=== PATIENT | female | born 1995 | race Caucasian/White ===

== ENCOUNTER 2016-12-05 13:45 | Emergency (ER) | payer OTHER ==
[~2016-12-05] VITALS: Wt 77.0 kg
--- NOTE | 2016-12-05 15:17 | EN ---
Date/Time of Note Date/Time of Note DATE: 12/05/16 TIME: 15:15 ER Progress Note Patient seen and examined in E. Patient had hemoptysis, sore throat, ear pain since last night. Hemodynamically stable. Examination within normal limits in RME but patient would like an xray. will be sent to ED2 for further evaluation. EDWIN SHARMA PA-C Dec 05, 2016 15:17
--- NOTE | 2016-12-05 17:20 | RADRPT ---
PROCEDURE: XR Chest. CLINICAL INDICATION: Cough. TECHNIQUE: Single frontal view of the chest was obtained COMPARISON: No. FINDINGS: The soft tissues are normal. The bony elements are normal. The heart, cardiomediastinal silhouette , pulmonary vasculature and hilar structures are normal. There is a left-sided aorta. The lungs are clear. The costophrenic angles are normal. IMPRESSION: 1. Normal chest x-ray. No acute infiltrate is identified. RPTAT:AAJJ Physician Faraz Date Time Electronically viewed and signed by Jairon Rome Physician on 12/05/2016 17:19 [email or web address]/
[2016-12-05] MEDS ORDERED: AZIT250T94 PO (17:52)
[2016-12-05] MEDS ORDERED: CETI10CA PO (17:52)
[2016-12-05] MEDS ORDERED: ALBU8.5H3 INH (17:52)
[2016-12-05] MEDS ORDERED: BENZ100C70 PO (17:53)
--- NOTE | 2016-12-05 18:01 | ERD ---
ER Documentation Chief Complaint Date/Time DATE: 12/05/16 TIME: 17:57 Chief Complaint COUGH FOR THE PAST FEW MONTHS. EAR PAIN AND SORE THROAT WITH HEADACHE HPI Patient is a 21-year-old female who presents to the ED with congestion, cough, runny nose and 2 episodes of hemoptysis. Denies night sweats. Denies chest pain, shortness of breath or difficulty breathing. Denies leg pain or swelling. Denies headache, dizziness, neck pain or stiffness. Denies abdominal pain, nausea, vomiting or diarrhea. Patient states that in September she had similar symptoms and was given Keflex, an inhaler and prednisone and states that the symptoms got better. However she states that she has similar symptoms now. She also complains of right ear pain. She also states that her mom has similar symptoms at home. She is up-to-date with her vaccinations. Denies recent surgeries, use of OCPs, recent travel. No other complaints ROS All systems reviewed and are negative except as per history of present illness. Medications Home Meds Active Scripts Benzonatate* (Tessalon Perle*) 100 Mg Capsule, 100 MG PO Q8H Y for COUGH for 10 Days, CAP Prov:EDWIN SHARMA PA-C 12/05/16 Cetirizine Hcl* (Zyrtec*) 10 Mg Capsule, 10 MG PO DAILY, #30 TAB.CHEW Prov:EDWIN SHARMA PA-C 12/05/16 Albuterol Sulfate* (Proair HFA*) 8.5 Gm Hfa.aer.ad, 2 PUFF INH Q4, #1 INHALER Prov:EDWIN SHARMA PA-C 12/05/16 Azithromycin* (Zithromax*) 250 Mg Tablet, 250 MG PO .ZPACK DIRECTED, #6 TAB TAKE 500 MG (2 TABS) THE FIRST DAY THEN 250 MG (1 TAB) DAYS 2-5 Prov:EDWIN SHARMA PA-C 12/05/16 Allergies Allergies: Coded Allergies: No Known Allergy (Unverified , 12/05/16) PMhx/Soc Medical and Surgical Hx: pt denies Medical Hx, pt denies Surgical Hx History of Surgery: No Anesthesia Reaction: No Hx Neurological Disorder: No Hx Respiratory Disorders: No Hx Cardiac Disorders: No Hx Psychiatric Problems: No Hx Miscellaneous Medical Probl: No Hx Alcohol Use: Yes (socially.) Hx Substance Use: No Hx Tobacco Use: No Smoking Status: Never smoker Physical Exam Vitals Vital Signs Date Time Temp Pulse Resp B/P Pulse Ox O2 Delivery O2 Flow Rate FiO2 12/05/16 13:54 98.5 76 20 140/78 97 Physical Exam GENERAL: Well-developed, well-nourished female. Appears in no acute distress. HEAD: Normocephalic, atraumatic. EYES: Pupils are equally reactive bilaterally. EOMs grossly intact. No conjunctival erythema. ENT: Moist mucous membranes. No uvula deviation. No kissing tonsils. No exudates. TMs clear with no erythema or drainage mastoid tenderness. No bleeding seen in throat. No shift and uvula NECK: Supple. No lymphadenopathy or thyromegaly. No meningismus. negative kernig. negative brudinski. LUNG: Clear to auscultation bilaterally. No rhonchi, wheezing, rales or coarse breath sounds. HEART: Regular rate and rhythm. No murmurs, rubs or gallops. NEUROLOGIC: Alert and oriented. Moving all four extremities. 5/5 strength in all extremities. Normal speech. Steady gait. SKIN: Normal color. Warm and dry. No rashes or lesions. Capillary refill < 2 seconds Procedures/MDM ER COURSE: I kept the patient and/or family informed of laboratory and diagnostic imaging results throughout the emergency room course. Imaging studies: [place] [id number] Radiology Main Line: [phone] DIAGNOSTIC IMAGING REPORT Patient: SARAH BARRERA : 1995 Age: 21 Sex: F MR #: [id number] DOS: 12/05/16 1647 Ordering MD: EDWIN SHARMA PA-C Location: [facility] Room/Bed: PROCEDURE: XR Chest. CLINICAL INDICATION: Cough. TECHNIQUE: Single frontal view of the chest was obtained COMPARISON: No. FINDINGS: The soft tissues are normal. The bony elements are normal. The heart, cardiomediastinal silhouette, pulmonary vasculature and hilar structures are normal. There is a left-sided aorta. The lungs are clear. The costophrenic angles are normal. IMPRESSION: 1. Normal chest x-ray. No acute infiltrate is identified. RPTAT:AAJJ Jairon Rome Physician Date Time Electronically viewed and signed by Jairon Rome Physician on 12/05/2016 17:19 JM/ CC: EDWIN SHARMA PA-C MEDICAL DECISION MAKING: This is a 21-year-old female who presents with cough, sore throat and runny nose. Vital signs were reviewed. Patient is afebrile. Patient is not hypoxic. Patient is nontoxic or ill-appearing. Temperature 98.5, O2 sat 97. Patient likely has URI, viral versus bacterial etiology. Her chest x-ray is read by radiologist is unremarkable. Low suspicion for pneumonia, PE, pneumothorax, ACS , epiglottitis, obstruction, TB, pertussis, meningitis, sepsis. DISCHARGE: At this time, patient is stable for discharge and outpatient management with no new complaints during the ER course. Patient was sent home with Tessalon Perles , Zyrtec, albuterol and azithromycin. Patient will be discharged home with instructions to recheck for new or worsening symptoms such as fever, nausea, weakness, LOC and to follow up with primary care in the next 1-2 days. Patient was advised to return to the ER for any new or worsening symptoms. Plan was discussed and patient and/or family understands and agrees. Home instructions were given. Departure Diagnosis: Primary Impression: URI, acute Condition: Stable Patient Instructions: Uri, Viral, No Abx (Adult) Additional Instructions: Call your primary care doctor TOMORROW for an appointment during the next 1-2 days.See the doctor sooner or return here if your condition worsens before your appointment time. EDWIN SHARMA PA-C Dec 05, 2016 18:01
[2016-12-05 18:03] VITALS: BP 120/70; PULSE 69; RESP 16
== END 2016-12-05 18:04 | disposition home or self-care (01) ==
LOC: FTE 13:45
DX: J06.9 Acute upper respiratory infection, unspecified (principal)
CPT/HCPCS: 71010; Z7502

== ENCOUNTER 2017-03-04 06:25 | Emergency (ER) | payer OTHER ==
[~2017-03-04] VITALS: Wt 75.0 kg
[~2017-03-04 06:25] MED LIST: ALBU8.5H3 INH; AZIT250T94 PO; BENZ100C70 PO; CETI10CA PO
--- NOTE | 2017-03-04 06:45 | ERD ---
ER Documentation Chief Complaint Date/Time DATE: 03/04/17 TIME: 06:42 Chief Complaint cough sore throat for the past few days. and ear pain HPI This is a 22-year-old female presenting to the emergency department for cough, sore throat 3 days. Cough is dry nonproductive. Patient rates sore throat 7-8 /10 and worsening pain with swallowing. No fevers or chills. No shortness of breath or difficulty breathing. No wheezing. Patient has tried DayQuil and NyQuil at home with some relief of symptoms. Patient states cough continues throughout the day. ROS All systems reviewed and are negative except as per history of present illness. Medications Home Meds Active Scripts Benzonatate* (Tessalon Perle*) 100 Mg Capsule, 100 MG PO Q8H Y for COUGH for 10 Days, CAP Prov:EDWIN SHARMA PA-C 12/05/16 Cetirizine Hcl* (Zyrtec*) 10 Mg Capsule, 10 MG PO DAILY, #30 TAB.CHEW Prov:EDWIN SHARMA PA-C 12/05/16 Albuterol Sulfate* (Proair HFA*) 8.5 Gm Hfa.aer.ad, 2 PUFF INH Q4, #1 INHALER Prov:EDWIN SHARMA PA-C 12/05/16 Azithromycin* (Zithromax*) 250 Mg Tablet, 250 MG PO .ZPACK DIRECTED, #6 TAB TAKE 500 MG (2 TABS) THE FIRST DAY THEN 250 MG (1 TAB) DAYS 2-5 Prov:EDWIN SHARMA PA-C 12/05/16 Allergies Allergies: Coded Allergies: No Known Allergy (Unverified , 12/05/16) PMhx/Soc History of Surgery: No Anesthesia Reaction: No Hx Neurological Disorder: No Hx Respiratory Disorders: No Hx Cardiac Disorders: No Hx Psychiatric Problems: No Hx Miscellaneous Medical Probl: No Hx Alcohol Use: Yes (socially.) Hx Substance Use: No Hx Tobacco Use: No Physical Exam Vitals Vital Signs Date Time Temp Pulse Resp B/P Pulse Ox O2 Delivery O2 Flow Rate FiO2 03/04/17 06:30 97.9 77 20 131/76 99 Physical Exam Const: No acute distress, alert Head: Atraumatic Eyes: Normal Conjunctiva ENT: Normal External Ears, Nose and Mouth. No erythema or exudate to posterior pharynx. TMs normal bilaterally. Neck: Full range of motion..~ No meningismus. Resp: Clear to auscultation bilaterally. No wheezing, rhonchi or crackles. No stridor or labored breathing. Cardio: Regular rate and rhythm, no murmurs Abd: Soft, non tender, non distended. Normal bowel sounds Skin: No petechiae or rashes Back: No midline or flank tenderness Ext: No cyanosis, or edema Neur: Awake and alert Psych: Normal Mood and Affect Procedures/MDM MDM: 22-year-old female presents emergency department for cough and sore throat 3 days. Patient is afebrile upon arrival to ED. Vital signs are stable. No signs or symptoms of respiratory distress. Oxygen saturation 99% on room air. Lung exam and ENT exam are unremarkable. Patient is alert, calm and cooperative. Patient is talking in complete sentences. Low suspicion for pneumonia, pleural effusion, pneumothorax, strep pharyngitis, epiglottitis or acute IA. Differential diagnosis includes but not limited to URI, influenza, otitis media, otitis externa, asthma exacerbation, croup, bronchitis, bronchiolitis and costochondritis. Patient is appropriate for outpatient management and will be given prescription for Cheratussin AC. Instructed patient to follow-up with primary care provider in the next 2-3 days for reassessment and additional management. Return to ED for any high fever, chest pain, difficulty breathing, shortness breath, wheezing , vomiting, diarrhea, abdominal pain or any new or worsening symptoms. Patient verbalizes understanding. All questions answered at discharge. Departure Diagnosis: Primary Impression: URI (upper respiratory infection) URI type: unspecified viral URI Qualified Code: J06.9 - Viral upper respiratory tract infection Condition: Stable CAROLINA GUARDADO NP March 04, 2017 06:45
[2017-03-04] MEDS ORDERED: GUAI118L22 PO (06:48)
== END 2017-03-04 07:36 | disposition home or self-care (01) ==
LOC: FTE 06:25
DX: J06.9 Acute upper respiratory infection, unspecified (principal)
CPT/HCPCS: 99283

== ENCOUNTER 2017-08-16 15:35 | Emergency (ER) | payer OTHER ==
[~2017-08-16] VITALS: Wt 68.2 kg
[~2017-08-16 15:35] MED LIST changes: +GUAI118L22 PO
[2017-08-16] MEDS ORDERED: CYCL-319 PO (16:51)
[2017-08-16] MEDS ORDERED: IBUP-1542 PO (16:51)
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
== END 2017-08-16 17:29 | disposition home or self-care (01) ==
LOC: FTE 15:35
DX: S13.4XXA Sprain of ligaments of cervical spine, initial encounter (principal); V89.2XXA Person injured in unspecified motor-vehicle accident, traffic, initial encounter
CPT/HCPCS: 99283

== ENCOUNTER 2018-02-01 08:36 | Emergency (ER) | END 2018-02-01 09:19 | disposition left against medical advice (07) ==

== ENCOUNTER 2018-02-07 22:03 | Emergency (ER) | END 2018-02-08 00:40 | disposition home or self-care (01) ==